=== PATIENT | male | born 2000 | race Caucasian/White ===

== ENCOUNTER 2021-05-16 07:31 | Emergency (ER) | payer OTHER, SELFPAY ==
[2021-05-16 07:32] VITALS: BP 104/60; PULSE 95; RESP 20; TEMP 35.3; O2SAT 96; BMI 36.8
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
--- NOTE | 2021-05-16 07:38 | NURSING ---
0729 CALLED [facility], [place] FOR TRANSPORT CALLED DR ANGELIA FLANAGAN TALKING TO THEM
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
[2021-05-16] MEDS: Ondansetron 4 MG/2 ML Vial IV (07:42)
[2021-05-16] MEDS: fentaNYL 100 MCG/2 ML Ampul 50 MCG IV (07:42)
[2021-05-16] MEDS: 0.9% Normal Saline 1,000 ML 999 ML IV (07:43)
--- NOTE | 2021-05-16 07:43 | ED.RN ---
pt arrives via ems, c-collar and back boarded.
[2021-05-16 07:44] VITALS: PULSE 83; RESP 28; O2SAT 98
[2021-05-16 07:48] VITALS: BP 130/49; PULSE 72; RESP 28; O2SAT 97
[2021-05-16 07:49] LABS: Absolute Lymphocyte Count 3.75 X10^3/uL (0.83-4.51); Absolute Neutrophil Count 4.6 X10^3/uL (2.0-7.7); Basophil# 0.07 X10^3/uL; Basophil% 0.7 % (0-1); Eosinophil# 0.17 X10^3/uL; Eosinophils% 1.7 % (0-5); Hematocrit 47.9 % (40-54); Hemoglobin 16.4 g/dL (13.0-16.5); Lymphocyte # 3.75 X10^3/ul (0.83-4.51); Mean Corp Hgb Conc 34.2 g/dL (32-36); Mean Corpuscular Volume 84.8 fL (80-94); Mean Platelet Vol. 8.8 fl (6.2-12.0); Monocyte# 1.06 X10^3/uL; Monocyte% 10.8 % (0-10); NRBC Flagged by Analyzer 0 % (0-5); Neutrophil # 4.58 X10^3/uL (2.7-7.7); Neutrophil % 46.5 % (47-70); Platelet Count 366 K/mm3 (150-450); RBC Distribution Width CV 12.1 % (11.6-14.6); RBC Distribution Width SD 37.1 fl (35.1-43.9); Red Blood Count 5.65 M/mm3 (4.6-6.2); White Blood Count 9.9 K/mm3 (4.4-11.0)
[2021-05-16 07:55] LABS: Anion Gap 9 (5-15); BUN 15 mg/dL (7-18); BUN/Creat Ratio 14.2 RATIO (10-20); Calcium,Total 8.6 mg/dL (8.5-10.1); Chloride 107 mmol/L (98-107); Creatinine, Serum 1.06 mg/dL (0.70-1.30); EST Glomerular Filtration Rate 94 mL/min (>60); Est Glom Filt Rate - Afr Amer 113 mL/min (>60); Glucose 152 mg/dL (74-106); Potassium 3.5 mmol/L (3.5-5.1); Sodium Level 138 mmol/L (136-145)
== END 2021-05-16 07:55 | disposition short-term general hospital (02) ==
PROVIDERS: Emergency Provider Emergency Medicine; Visit Provider Emergency Medicine
DX: S87.82XA Crushing injury of left lower leg, initial encounter (principal); V54.5XXA Driver of pick-up truck or van injured in collision with heavy transport vehicle or bus in traffic accident, initial encounter; Y93.9 Activity, unspecified; Y92.9 Unspecified place or not applicable; S81.812A Laceration without foreign body, left lower leg, initial encounter; M25.522 Pain in left elbow
CPT/HCPCS: 71045; 72170; 80048; 85025; 96374; 96375; 99285; J2405

== ENCOUNTER → 2021-05-22 11:15 | Outpatient (CLI) | payer OTHER, SELFPAY ==
--- NOTE | 2021-05-22 11:40 | RAD_ITS ---
EXAM: XR CHEST, 2 VIEWS CLINICAL INDICATION: CLOSED FX. OF ONE RIBLT SIDE W/RTN HEALING CLOSED FX. OF ONE RIBLT SIDE W/RTN HEALING TECHNIQUE: Frontal and lateral views of the chest. This report was created using [employer] report generation technology. COMPARISON: 05/16/2021. FINDINGS: LUNGS AND PLEURAL SPACES: Unremarkable. No consolidation or edema. No pneumothorax. No effusion. HEART: Unremarkable. Cardiac silhouette not enlarged. MEDIASTINUM: Central airways and mediastinal contour are unremarkable. BONES/JOINTS: Unremarkable. SOFT TISSUES: Unremarkable. RAD/Chest PA and Lateral IMPRESSION: No radiographic evidence of acute cardiopulmonary disease. Electronically Signed: James Cheema MD at 2:08 EST , Service support ,
== END ==
DX: S22.32XD Fracture of one rib, left side, subsequent encounter for fracture with routine healing (principal); J94.2 Hemothorax
CPT/HCPCS: 71046

== ENCOUNTER 2021-07-17 15:00 | Outpatient (RCR) | payer OTHER, SELFPAY ==
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
--- NOTE | 2021-10-12 14:46 | HP.PT.NRP ---
PATRICK AMEZQUITA CHUY was seen in my office for initial evaluation on 06/23/21. The following Plan of Care was established for this patient: Initial Frequency: 2x /Week Initial Duration: 4 Weeks Patient/Client Instruction: Educate patient on: Benefits of Fitness Program Therapeutic Exercise to Include: Strength training, Endurance training, Balance training, Coordination, Agility training, Body mechanics, Postural training, Flexibilty training, Gait and locomotor training, Neuromotor development, Passive ROM, Active ROM, Dynamic Lumbar Stabilization, Scapular Strength/Stabilization For the Purpose of:: To improve muscle performance and motor function TENS: Yes Cryotherapy (ice pack, ice massage): Yes Thermo therapy (hot pack): Yes This patient was last seen in our office . Pertinent comments regarding their Physical therapy will appear below: Patient has not attended PT in over 30 days- appropriate to be d/c and return to MD for further evaluation as needed. At this point I will be discontinuing this patient from physical therapy. I would be happy to see this patient again in the future if found appropriate by the physician. Thank you! Brit Mccain, JAMISON Balance/Gait/Functional tests - Balance/Special Test Scores Lower Extremity Functional Score: 56
== END 2021-07-17 19:00 | disposition home or self-care (01) ==
LOC: PT 15:00
PROVIDERS: PCP Pediatrics
DX: S14.3XXD Injury of brachial plexus, subsequent encounter (principal); X58.XXXD Exposure to other specified factors, subsequent encounter
CPT/HCPCS: 97014; 97110; 97162; 97166; G0283

== ENCOUNTER 2021-07-25 13:19 | Emergency (ER) | payer OTHER, SELFPAY ==
[2021-07-25 13:20] VITALS: BP 159/90; PULSE 93; RESP 16; TEMP 36.6; O2SAT 99; BMI 29.9
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
== END 2021-07-25 14:36 | disposition home or self-care (01) ==
PROVIDERS: Emergency Provider Emergency Medicine; PCP Pediatrics; Visit Provider Emergency Medicine
DX: S80.12XA Contusion of left lower leg, initial encounter (principal); W10.9XXA Fall (on) (from) unspecified stairs and steps, initial encounter
CPT/HCPCS: 73590; 99282

== ENCOUNTER 2023-12-06 17:42 | Emergency (ER) | payer OTHER, SELFPAY ==
[2023-12-06 17:42] VITALS: BP 136/82; PULSE 89; RESP 14; TEMP 36.7; O2SAT 98; BMI 33.5
--- NOTE | 2023-12-06 18:53 | EX.ED.GENINJ ---
HPI History of Present Illness Chief Complaint: Burn Informant: patient Narrative Narrative: Burn to the left hand 2 days ago. Cutting hot metal touched the metal bar. He has numbness to the left hand due to nerve damage from injury in the past. Only sensation index and thumb. Tetanus unknown. It blistered and opened up and drained. No fevers. Tetanus Immunization: Unknown [facility] Medical History ADHD Gastroenteritis due to food toxin Home Medications ?Medication ?Instructions ?Recorded ?Last Taken ?Type omeprazole 20 mg tablet,delayed 20 mg PO DAILY 11/21/22 Unknown History release Allergy/AdvReac Type Severity Reaction Status Date / Time Cephalosporins Allergy Unknown Verified 12/06/23 17:42 Family History Other Marfan syndrome Surgical History History of tonsillectomy and adenoidectomy Social History Smoking Status: Current every day smoker tobacco type: smokeless tobacco Smokeless tobacco user: snuff alcohol intake: current details: 7 a week substance use type: does not use ROS ROS ED Constitutional Constitutional ED: Denies chills, fever(s) or sweats Eyes Eyes: Denies change in vision ENT ENT ED: Denies dysphagia or sore throat Cardiovascular Cardiovascular: Denies chest pain, leg edema, palpitations or racing heartbeat Respiratory/Chest Respiratory/Chest: Denies cough, dyspnea or dyspnea on exertion Gastrointestinal Gastrointestinal: Denies abdominal pain, diarrhea, nausea or vomiting Genitourinary Genitourinary ED: Denies dysuria, hematuria or urinary frequency Musculoskeletal Musculoskeletal: Denies back pain, extremity pain or neck pain Integumentary Reports wounds; Denies rash Neurologic Neurologic: Denies headache(s), paresthesias or weakness EXAM Physical Exam Const Vital Signs: 12/06/23 17:42 12/06/23 17:57 12/06/23 19:10 Temperature 98.1 F 97.9 F Temperature Source Temporal Pulse Rate 89 78 Respiratory Rate 14 18 Respiratory Effort Normal Blood Pressure 136/82 H 130/88 H Blood Pressure Mean 100 102 Pulse Ox 98 97 Oxygen Delivery Method Room Air Positive well nourished and well developed General Appearance ED: well developed and NAD HEENT Reports moist mucous membranes normocephalic and atraumatic Eyes EOMs intact bilaterally and conjunctivae normal General Eye ED: Yes normal appearance of both eyes Neck no lymphadenopathy and supple General: Negative for tenderness Chest Wall Chest: Negative for tenderness Resp normal respiratory effort and normal air movement Effort and Inspection: symmetric chest movement; Negative for respiratory distress Cardio regular rate, regular rhythm and no murmurs Peripheral Pulses: pulses 2+ throughout GI normal to inspection, nondistended, normoactive bowel sounds and non-tender Palpation: Negative for guarding or rebound tenderness present Back/Spine no CVA tenderness and no thoracic nor lumbar tenderness Extremity Extremity Narrative: Left upper extremity: Hand. There is less than 1% burn blistering to the ulnar aspect of the palm. No finger involvement. Blister opened up distally there was good granulation of the wound underneath. He has no sensation due to chronic nerve damage. General Extremety ED: Negative for edema or tenderness General Extremity: Negative for edema Neuro oriented x3 and no sensory deficits noted Sensorium / Orientation: awake and alert Skin no rashes or lesions noted and no wounds MDM MDM MDM Narrative Medical decision making narrative: Interventions / MDM: Differential diagnosis: Second-degree burn left hand, previous nerve injury Diagnosis considered but do not suspect: Cellulitis My EKG interpretation: N/A Imaging independently reviewed and interpreted by myself: N/A External documents reviewed: N/A Test considered but not ordered:N/A ED course: Chronic nerve injury second-degree burn to the hand less than 1%. Wound was cleansed, Xeroform dressing with supplies sent home with the patient. Tetanus updated. He is given follow-up with wound care. Re-evaluation: stable Disposition discussed with patient/family/significant other: Patient Case discussed with consulting clinician: N/A This note was generated with [employer] dictation software. It may contain incorrect words, spelling, and punctuation that were not noted in checking the note before signing. Discharge Plan Triage Chief Complaint: Burn ED Provider: Vincenzo Larsen Dx/Rx/DC Orders Clinical Impression: Second degree burn of back of left hand, Tetanus toxoid vaccination administered at current visit Instructions: ED First- and Second-Degree [place] ... Prescriptions: No Action omeprazole 20 mg tablet,delayed release (DR/EC) 20 mg PO DAILY Primary Care Provider: Quynh Lira Referrals: Quynh Lira MD [Primary Care Provider] - Wound,Center [Non-Staff] - 3-5 Days Activity Restrictions/Additional Instructions: Wound care as discussed. Use wound supplies. Follow-up with wound center. Print Language: Egyptian Disposition Disposition: Home, Self Care Discharge Date/Time: 12/06/23 19:20
[2023-12-06] MEDS: Diphth,Pertuss(Acell),Tet Vac 0.5 ML Vial IM (19:08)
[2023-12-06 19:10] VITALS: BP 130/88; PULSE 78; RESP 18; TEMP 36.6; O2SAT 97
== END 2023-12-06 19:20 | disposition home or self-care (01) ==
LOC: ED 18:57
PROVIDERS: Emergency Provider Emergency Medicine; PCP Pediatrics; Visit Provider Emergency Medicine
DX: T23.262A Burn of second degree of back of left hand, initial encounter (principal); F17.220 Nicotine dependence, chewing tobacco, uncomplicated; Z23 Encounter for immunization; X19.XXXA Contact with other heat and hot substances, initial encounter; Y99.0 Civilian activity done for income or pay
CPT/HCPCS: 90715; 99283

== ENCOUNTER 2024-01-17 18:46 | Emergency (ER) | payer OTHER, SELFPAY ==
[2024-01-17 18:46] VITALS: BP 148/88; PULSE 106; RESP 18; TEMP 36.2; O2SAT 97; BMI 32.5
--- NOTE | 2024-01-17 19:31 | CT_ITS ---
EXAM: CT NECK WITH INTRAVENOUS CONTRAST CLINICAL INDICATION: left mandibular pain/infection, trismus TECHNIQUE: Helically acquired images were obtained of the neck with intravenous contrast. This CT exam was performed using one or more of the following dose reduction techniques: automated exposure control, adjustment of the mA and/or kV according to patient size, and/or use of iterative reconstruction technique. CONTRAST: IV 75mL [id number] COMPARISON: No relevant prior studies available. FINDINGS: NASOPHARYNX: No significant abnormality. SUPRAHYOID NECK: No significant abnormality. Oropharynx, oral cavity, parapharyngeal space and retropharyngeal space are unremarkable. INFRAHYOID NECK: No significant abnormality. The larynx, hypopharynx and supraglottis are unremarkable. SUBMANDIBULAR/PAROTID GLANDS: No significant abnormality. Glands are normal in size. THYROID: No significant abnormality. No enlarged or calcified nodules. DENTAL: The examination is limited due to dental amalgam related artifacts. Multiple dental caries. There are a few absent teeth. BONES/JOINTS: No acute fracture. SOFT TISSUES: No significant abnormality. No abscess or inflammatory process. VASCULATURE: No significant findings. LYMPH NODES: No significant abnormality. No lymphadenopathy. LUNG APICES: Normal as visualized. CT/Soft Tissue Neck WITH Contrast IMPRESSION: No evidence of abscess or significant inflammatory changes. Dental disease. Electronically Signed: Bran Del Rosario DO at 20:23 EDT ,
[2024-01-17 19:47] LABS: Absolute Lymphocyte Count 1.09 X10^3/uL (0.83-4.51); Absolute Neutrophil Count 3.9 X10^3/uL (2.0-7.7); Basophil# 0.03 X10^3/uL; Basophil% 0.5 % (0-1); Eosinophil# 0.03 X10^3/uL; Eosinophils% 0.5 % (0-5); Hematocrit 43.1 % (40-54); Hemoglobin 14.4 g/dL (13.0-16.5); Lymphocyte # 1.09 X10^3/ul (0.83-4.51); Lymphocyte % 19.1 % (19-41); Mean Corp Hgb Conc 33.4 g/dL (32-36); Mean Corpuscular Hgb 28.7 pg (27.0-32.0); Mean Platelet Vol. 8.7 fl (6.2-12.0); Monocyte# 0.61 X10^3/uL; Monocyte% 10.7 % (0-10); NRBC Flagged by Analyzer 0 % (0-5); Neutrophil # 3.91 X10^3/uL (2.7-7.7); Neutrophil % 68.3 % (47-70); Platelet Count 240 K/mm3 (150-450); RBC Distribution Width SD 37.5 fl (35.1-43.9); Red Blood Count 5.01 M/mm3 (4.6-6.2); White Blood Count 5.7 K/mm3 (4.4-11.0)
--- NOTE | 2024-01-17 19:51 | ED.VIS.DENTA ---
HPI History of Present Illness Chief Complaint: Dental Informant: patient Narrative Narrative: Left mandibular molar pain for the past 3 to 4 days gradual in onset progressively worsening despite being on clindamycin for 3 days that he received at urgent care the night of the onset. He denies any fevers or chills or discharge or bleed. However he is concerned because he can barely open his severe pain which was not the case at the beginning of this, he states it was hard to even get a spoon of yogurt into with [facility] Medical History Infected dental caries Partial thickness burn of left hand ADHD Gastroenteritis due to food toxin Home Medications ?Medication ?Instructions ?Recorded ?Last Taken ?Type meloxicam 15 mg tablet 15 mg PO QDAY #15 tabs 01/15/24 Unknown Rx clindamycin HCl 300 mg capsule 300 mg PO 4X/DAY #30 caps 01/17/24 Unknown Rx Allergy/AdvReac Type Severity Reaction Status Date / Time Cephalosporins Allergy Unknown Verified 01/17/24 18:46 Family History Other Marfan syndrome Surgical History History of tonsillectomy and adenoidectomy Social History Smoking Status: Current every day smoker tobacco type: smokeless tobacco Smokeless tobacco user: snuff alcohol intake: current details: 7 a week substance use type: does not use ROS ROS ED Constitutional Constitutional ED: Denies chills or fever(s) Eyes Eyes: Denies change in vision or double vision ENT ENT ED: Reports dental pain; Denies sinus pain or throat swelling Cardiovascular Cardiovascular: Denies chest pain or palpitations Respiratory/Chest Respiratory/Chest: Denies cough or dyspnea Integumentary Denies abscess or rash Neurologic Neurologic: Denies headache(s), paresthesias or weakness EXAM Physical Exam Const Vital Signs: 01/17/24 18:46 Temperature 97.2 F L Temperature Source Temporal Pulse Rate 106 H Respiratory Rate 18 Blood Pressure 148/88 H Blood Pressure Mean 108 Pulse Ox 97 Oxygen Delivery Method Room Air Positive well nourished and well developed General Appearance ED: well developed and NAD HEENT HEENT Narrative: There is tenderness along with white tissue without discharge in the tissue surrounding the left mandibular third molar which appears to be partially erupted, the entire tooth is not able to be fully inspected since the patient does have some mild trismus. He does have tenderness in the external tissues lateral to this, there is no obvious gingival abscess, or expressible discharge or bleeding, or evidence of necrosis in the nearby gingiva or buccal mucosa. Externally he is very tender in the left submandibular area but I cannot palpate anything definitive, partially limited due to the patient's extensive facial hair/johnson. There is no dysphonia or garbled speech. There is no tongue elevation or sublingual tenderness/swelling/asymmetry. Face and Sinus: sinuses nontender Throat: posterior oropharynx normal Eyes PERRL and EOMs intact bilaterally Neck no lymphadenopathy and supple Resp normal respiratory effort Neuro oriented x3 and CN's II-XII intact bilaterally Sensorium / Orientation: alert Gait (Neuro): normal gait Psych mental status grossly normal and thought process normal Skin no rashes or lesions noted and no wounds MDM MDM MDM Narrative Medical decision making narrative: Patient is lying back comfortably denies any dyspnea now or before coming here, his airway is not an acute issue. We discussed options here, 1 being to work him up with a CT, the other to attempt empiric aspiration with a needle. He wanted to do the CT first which I think is completely reasonable, to rule out a deep space collection. I reviewed the images as well as report for this and agree with it, it is negative for any deep space collection or asymmetry. Patient reassured, I think reasonable to give him Toradol and Decadron, he has a dental appointment in 4 days, recommend keeping that and continuing with the clindamycin. Of note, it appears he was prescribed this only 3 times daily, he was advised that appropriate dosing is 4 times daily and I would change it, and just take it until he runs out, it would at least get him to see the dentist. Lab Data Attestation: I reviewed the patient's lab results. Labs: Laboratory Results - last 24 hr 01/17/24 19:40 WBC 5.7 RBC 5.01 Hgb 14.4 Hct 43.1 MCV 86.0 MCH 28.7 MCHC 33.4 RDW Std Deviation 37.5 RDW Coeff of Allyssa 12.0 Plt Count 240 MPV 8.7 Immature Gran % (Auto) 0.900 Neut % (Auto) 68.3 Lymph % (Auto) 19.1 [place] % (Auto) 10.7 H Eos % (Auto) 0.5 Baso % (Auto) 0.5 Absolute Neuts (auto) 3.9 Absolute Lymphs (auto) 1.09 Nucleated RBC % 0 Sodium 141 Potassium 3.7 Chloride 109 H Carbon Dioxide 24.0 Anion Gap 8 BUN 12 Creatinine 0.96 Estim Creat Clear Calc 148.11 Est GFR (MDRD) Af Amer 123 Est GFR (MDRD) Non-Af 102 BUN/Creatinine Ratio 12.4 Glucose 105 Calcium 8.7 Radiography Diagnostic Testing: Clinical Impression(s) from Imaging Studies Soft Tissue Neck CT 01/17/24 19:31 IMPRESSION: No evidence of abscess or significant inflammatory changes. Dental disease. Electronically Signed: Bran Del Rosario DO at 20:23 EDT , Discharge Plan Triage Chief Complaint: Dental ED Provider: Chano Barron Dx/Rx/DC Orders Clinical Impression: Dental infection Instructions: Dental Abscess Prescriptions: Continued meloxicam 15 mg tablet 15 mg PO QDAY Qty: 15 0RF Changed clindamycin HCl 300 mg capsule 300 mg PO 4X/DAY Qty: 30 0RF Primary Care Provider: Quynh Lira Referrals: Quynh Lira MD [Primary Care Provider] - Dentist,Your [STAFF PHYSICIAN] - Keep Pham appointment Print Language: Bulgarian Disposition Disposition: Home, Self Care
[2024-01-17 19:59] LABS: Anion Gap 8 (5-15); BUN 12 mg/dL (7-18); BUN/Creat Ratio 12.4 RATIO (10-20); Calcium,Total 8.7 mg/dL (8.5-10.1); Chloride 109 mmol/L (98-107); Creatinine, Serum 0.96 mg/dL (0.70-1.30); EST Glomerular Filtration Rate 102 mL/min (>60); Est Glom Filt Rate - Afr Amer 123 mL/min (>60); Estimated Creatinine Clearance 148.11 ml/min; Glucose 105 mg/dL (74-106); Potassium 3.7 mmol/L (3.5-5.1); Sodium Level 141 mmol/L (136-145)
[2024-01-17] MEDS: dexAMETHasone 10 MG/ML Vial IV (21:08)
[2024-01-17] MEDS: Ketorolac 30 MG/ML Syringe IV (21:08)
== END 2024-01-17 21:15 | disposition home or self-care (01) ==
PROVIDERS: Emergency Provider Emergency Medicine; PCP Pediatrics; Visit Provider Emergency Medicine
DX: K04.7 Periapical abscess without sinus (principal); F17.220 Nicotine dependence, chewing tobacco, uncomplicated
CPT/HCPCS: 70491; 80048; 85025; 96374; 96375; 99283; Q9967; A4216

== ENCOUNTER → 2025-04-06 | Outpatient (CLI) | payer OTHER, SELFPAY ==
--- NOTE | 2025-04-06 17:06 | MRI_ITS ---
PROCEDURE: SPINE CERVICAL (ROUTINE) 04/06/2025 REASON FOR EXAM: LEFT ARM PAIN, NUMBNESS, WEAKNESS IN LEFT ASSURANCE SENIOR MANAGER TECHNIQUE: Procedure Code: MRISPC Modality: MR Procedure: SPINE CERVICAL (ROUTINE) Multiplanar and multisequence images were obtained without IV contrast administration. FINDINGS: No acute fracture or subluxation. No significant disc space narrowing. Very subtle disc desiccation is noted at C4-5 and C5-6, with minimal posterior disc bulging. The bone marrow signal is unremarkable. The cervical cord is normal in size and signal. Cystic structures are noted within the left neural foramen at C7-T1 and T1-2. The prevertebral soft tissues appear unremarkable. C2-3: No significant canal or neural foraminal narrowing. C3-4: No significant canal or neural foraminal narrowing. C4-5: No significant canal or neural foraminal narrowing. C5-6: No significant canal or neural foraminal narrowing. C6-7: No significant canal or neural foraminal narrowing. C7-T1: A bilobed cystic structure measuring 11 x 22 x 9 mm is noted within the left neural foramen and extends into the extra foraminal space. No significant canal narrowing. The right neural foramen appears ample. T1-2: A cystic structure measuring 11 x 28 by 12 mm is noted in the left neural foramen and extends into the extraforaminal space. No significant canal narrowing. The right neural foramen appears ample. MRI/Spine Cervical (Routine) IMPRESSION: Cystic structures within the left neural foramina at C7-T1 and T1-2, likely rep resenting dilated nerve root sleeves and/or perineural cysts. In the setting of trauma, these findings could represent tra umatic nerve root avulsions. Please correlate clinically. Reading Location: [id number]
== END | disposition home or self-care (01) ==
LOC: MRI 16:59
PROVIDERS: PCP Pediatrics; Referring Provider Student in an Organized Health Care Education/Training Program; Visit Provider Student in an Organized Health Care Education/Training Program
DX: G95.9 Disease of spinal cord, unspecified (principal); M54.12 Radiculopathy, cervical region
CPT/HCPCS: 72141